=== PATIENT | female | born 1985 | race Caucasian/White ===

== ENCOUNTER 2018-02-01 15:11 | Emergency (ER) | payer OTHER, MEDICAID, SELFPAY ==
[2018-02-01] VITALS (8 sets, daily range): BP systolic 110–168; BP diastolic 67–89; PULSE 66–100; RESP 12–20; TEMP 36.7; O2SAT 99–100
--- NOTE | 2018-02-01 15:21 | ED_ITS ---
HPI - Overdose General Chief Complaint: Toxicology Problem Stated Complaint: OD tylenol and nyquil Time Seen by Provider: 02/01/18 15:20 Source: patient Mode of arrival: EMS Limitations: no limitations History of Present Illness HPI Narrative: 32-year-old female brought in by EMS from [facility] after approximately 2 hr prior to arrival in this emergency department the patient took approximately 15 Tylenol p.m. was with NyQuil. She is unsure as to how much NyQuil she drank. She states that she took these medications because she was ?done with my day ?she states that she has never tried to hurt herself in the past. Would not answer any questions about the situation that led to the situation. Denies any prior mental health diagnoses. She is not . Has a 14-year-old son who is being watched by the patient's mother. Related Data Home Medications Medication Instructions Recorded Confirmed No Known Home Medications 02/01/18 02/01/18 Allergies Allergy/AdvReac Type Severity Reaction Status Date / Time No Known Allergies Allergy Uncoded 12/22/17 13:09 Review of Systems Constitutional Denies chills, Denies fever(s), Denies headache(s), Denies lethargy and Denies weakness Eyes Denies loss of vision ENT Ears, Nose, Mouth, and Throat: Denies headache(s) Cardiovascular Denies chest pain and Denies dyspnea Respiratory Denies cough and Denies dyspnea Gastrointestinal Gastrointestinal: Denies abdominal pain, Denies change in stool character, Denies constipation, Denies diarrhea, Denies nausea and Denies vomiting Musculoskeletal Denies muscle cramps Integumentary/Breasts Denies pruritus, Denies erythema, Denies rash and Denies wounds Neurologic Reports behavioral changes, Denies confusion, Denies headache(s), Denies loss of vision and Denies weakness Psychiatric Denies anxiety, Reports behavioral changes, Denies confusion, Reports depression , Denies hallucinations, Denies homicidal ideation and Reports suicidal ideation Hematologic/Lymphatic Denies easy bruising Exam Initial Vital Signs Initial Vital Signs: Vital Signs Temperature 98.1 F 02/01/18 15:37 Pulse Rate 100 H 02/01/18 15:37 Respiratory Rate 18 02/01/18 15:37 Blood Pressure 113/67 02/01/18 15:37 Pulse Oximetry 100 02/01/18 15:37 Const General: cooperative (Only somewhat cooperative with answering questions), comfortable, well developed, well groomed, No combative, No ill appearing and No intoxicated appearing Nutritional Appearance: well nourished Orientation: alert, awake, oriented x3 and not confused Eyes Pupils: PERRL Resp Effort & Inspection: normal respiratory effort, able to speak in complete sentences, no respiratory distress and no use of accessory muscles Auscultation: clear to auscultation bilaterally, no rales, no rhonchi and no wheezes Cardio Rate: regular rate Rhythm: regular rhythm Heart Sounds: no click, no gallops, no murmurs and no rubs Pulses: normal peripheral pulses Skin General: no rashes or lesions noted, No jaundice and No petechiae Neuro General: alert, awake, oriented x3, gait normal and no focal motor deficits Speech: speech normal Sensory Exam: no sensory deficits noted Psych Appearance: grossly normal and well kempt Mental Status: other (Depressed mood) Speech and Movement: agitated, speech not pressured, not restless, movement not slowed and speech not slurred Mood: other (Depressed mood) Affect: sad, indifferent and blunted Attitude: cooperative (Somewhat cooperative however was very short with answers and did not answer some questions) Course Orders Ordered: ED Orders 02/01/18 16:03 Acetaminophen Stat Complete Blood Count AUTO DIFF Stat Comprehensive Metabolic Panel Stat Ethanol (ETOH) Stat Rapid Drug Screen, Urine Stat Salicylate Stat 02/01/18 16:45 EKG-12 Lead Stat 02/01/18 17:35 Acetaminophen Stat Vital Signs - 8 hr 02/01/18 15:37 02/01/18 16:14 02/01/18 17:00 Temperature 98.1 F Pulse Rate 100 H 74 74 Respiratory Rate 18 18 15 Blood Pressure 113/67 Blood Pressure [Right Arm] 128/83 H 127/89 H Pulse Oximetry 100 100 100 02/01/18 17:30 02/01/18 18:17 Temperature Pulse Rate 81 81 Respiratory Rate 12 Blood Pressure Blood Pressure [Right Arm] 119/76 117/68 Pulse Oximetry 100 100 MDM - Overdose Lab Data Attestation: I reviewed the patient's lab results. Result diagrams: 02/01/18 16:03 02/01/18 16:03 Lab Results 02/01/18 02/01/18 02/01/18 Range/Units 16:03 16:03 16:03 WBC 8.5 (4.5-11.0) X10^3/uL RBC 4.67 (4.0-5.2) X10^6/uL Hgb 14.2 (12.0-16.0) g/dL Hct 41.5 (36-46) % MCV 88.8 (80-100) fL MCH 30.4 (26-34) PG MCHC 34.2 (30-36) % RDW 13.4 (11.6-14.8) % Plt Count 219 (150-400) X10^3/uL Neut % (Auto) 52.9 (50-75) % Lymph % (Auto) 37.1 (25-40) % Mora % (Auto) 8.7 (3-14) % Eos % (Auto) 1.0 L (2-4) % Baso % (Auto) 0.3 (0-2) % Neut # (Auto) 4500 (1227-1930) /uL Sodium 143 (137-145) mmol/L Potassium 3.8 (3.4-5.1) mmol/L Chloride 107.0 (98-107) mmol/L Carbon Dioxide 25.0 (22-32) mmol/L BUN 9.0 (7-17) mg/dL Creatinine 0.60 (0.52-1.04) mg/dL Estimated GFR > 60.0 (>60) mL/min BUN/Creatinine Ratio 15.0 (6-22) Glucose 78 (70-100) mg/dL Calcium 8.5 (8.4-10.2) mg/dL Total Bilirubin 0.5 (0.2-1.3) mg/dL AST 15 (14-36) IU/L ALT 26 (9-52) IU/L Alkaline Phosphatase 65 (38-126) U/L Total Protein 7.0 (6.3-8.2) g/dL Albumin 4.2 (3.5-5.0) g/dL Globulin 2.8 (1.7-4.1) g/dL Albumin/Globulin Ratio 1.5 (1.0-2.8) Salicylates < 1.0 (<20) mg/dL Urine Opiates Screen Negative (Negative) Ur Oxycodone Screen Negative (Negative) Urine Methadone Screen Negative (Negative) Acetaminophen 56 H* (10-30) ug/dL Ur Barbiturates Screen Negative (Negative) U Tricyclic Antidepress Negative (Negative) Ur Phencyclidine Scrn Negative (Negative) Ur Amphetamines Screen Positive H (Negative) U Methamphetamines Scrn Positive H (Negative) Ur MDMA Scrn (Ecstasy) Negative (Negative) U Benzodiazepines Scrn Negative (Negative) Urine Cocaine Screen Negative (Negative) U Marijuana (THC) Screen Negative (Negative) Ethyl Alcohol < 10 mg/dL 02/01/18 Range/Units 17:35 WBC (4.5-11.0) X10^3/uL RBC (4.0-5.2) X10^6/uL Hgb (12.0-16.0) g/dL Hct (36-46) % MCV (80-100) fL MCH (26-34) PG MCHC (30-36) % RDW (11.6-14.8) % Plt Count (150-400) X10^3/uL Neut % (Auto) (50-75) % Lymph % (Auto) (25-40) % Mora % (Auto) (3-14) % Eos % (Auto) (2-4) % Baso % (Auto) (0-2) % Neut # (Auto) (9119-4039) /uL Sodium (137-145) mmol/L Potassium (3.4-5.1) mmol/L Chloride (98-107) mmol/L Carbon Dioxide (22-32) mmol/L BUN (7-17) mg/dL Creatinine (0.52-1.04) mg/dL Estimated GFR (>60) mL/min BUN/Creatinine Ratio (6-22) Glucose (70-100) mg/dL Calcium (8.4-10.2) mg/dL Total Bilirubin (0.2-1.3) mg/dL AST (14-36) IU/L ALT (9-52) IU/L Alkaline Phosphatase (38-126) U/L Total Protein (6.3-8.2) g/dL Albumin (3.5-5.0) g/dL Globulin (1.7-4.1) g/dL Albumin/Globulin Ratio (1.0-2.8) Salicylates (<20) mg/dL Urine Opiates Screen (Negative) Ur Oxycodone Screen (Negative) Urine Methadone Screen (Negative) Acetaminophen 60 H* (10-30) ug/dL Ur Barbiturates Screen (Negative) U Tricyclic Antidepress (Negative) Ur Phencyclidine Scrn (Negative) Ur Amphetamines Screen (Negative) U Methamphetamines Scrn (Negative) Ur MDMA Scrn (Ecstasy) (Negative) U Benzodiazepines Scrn (Negative) Urine Cocaine Screen (Negative) U Marijuana (THC) Screen (Negative) Ethyl Alcohol mg/dL ECG Data Attestation: I personally reviewed and interpreted this ECG as follows: Prior ECG tracings: not available for review Interpretation: Sinus rhythm Ventricular rate is 72 Normal axis Normal QRS - 85 milliseconds Normal QTC No ST T wave changes MDM Narrative Medical decision making narrative: Patient has been medically stable while here in the emergency department. 4 hr Tylenol level was 60. UDS positive for meth. Patient has been sleeping in the ER with normal vital signs. Discussed the case with poison Control who states that she needs to be evaluated for 6 hr after ingestion secondary to the Benadryl. Family is at bedside. More information provided by other saying that the patient has been suicidal for some time and has attempted suicide in the past however no specifics were given. Case turned over to Dr. Carpenter at turned over for further evaluation and disposition and contacting mental health. Discharge Plan Departure Prescriptions: No Action No Known Home Medications RF: 0
--- NOTE | 2018-02-01 15:55 | PC.NURSE ---
with minimal assist. ambulate with steady gait.
[2018-02-01 16:15] LABS: Add Manual Diff / Slide Review NO; Basophils Percent Auto 0.3 % (0-2); Hematocrit 41.5 % (36-46); Hemoglobin 14.2 g/dL (12.0-16.0); Lymphocytes Percent Auto 37.1 % (25-40); Mean Corpuscular HGB Conc 34.2 % (30-36); Mean Corpuscular Hemoglobin 30.4 PG (26-34); Mean Corpuscular Volume 88.8 fL (80-100); Monocytes Percent Auto 8.7 % (3-14); Neutrophils Absolute Auto 4500 /uL (3000-5900); Neutrophils Percent Auto 52.9 % (50-75); Platelet Count 219 X10^3/uL (150-400); Red Blood Cell Count 4.67 X10^6/uL (4.0-5.2); Red Cell Distribution Width 13.4 % (11.6-14.8); White Blood Cell Count 8.5 X10^3/uL (4.5-11.0)
--- NOTE | 2018-02-01 16:15 | PC.NURSE ---
planning or wanting to hang her self 3 days ago.
--- NOTE | 2018-02-01 16:19 | PC.NURSE ---
pt wanting help, pt in room 1, cooperative with care at this time. pt contracted for safety, states, not running away , requesting help. pt states, unknown time , tyl pm ingestion along with nyquil, reports wanting to hang self 3 days ago, denies alcohol. pt having headache and nausea at this time, denies hallucinations (visual and auditory) denies pain at this time, reports with depression and spoke with her counselor leah ospina last wednesday.
[2018-02-01 16:31] LABS: Urine Amphetamines Positive (Negative); Urine Cocaine Negative (Negative); Urine MDMA Negative (Negative); Urine Methamphetamines Positive (Negative); Urine Morphine/Opi cutoff 2000 Negative (Negative); Urine Phencyclidine Negative (Negative); Urine Tetrahydrocannabinol Negative (Negative)
[2018-02-01 16:32] LABS: Alanine Aminotransferase 26 IU/L (9-52); Albumin 4.2 g/dL (3.5-5.0); Albumin Globulin Ratio 1.5 (1.0-2.8); Alkaline Phosphatase 65 U/L (38-126); Aspartate Aminotransferase 15 IU/L (14-36); Bilirubin Total 0.5 mg/dL (0.2-1.3); Calcium 8.5 mg/dL (8.4-10.2); Estimated Glomerular Filt Rate > 60.0 mL/min (>60); Ethanol (ETOH) < 10 mg/dL; Globulin 2.8 g/dL (1.7-4.1); Glucose 78 mg/dL (70-100); HEMOLYSIS < 15 (0-50); Potassium 3.8 mmol/L (3.4-5.1); Sodium 143 mmol/L (137-145); Urine Barbiturates Negative (Negative); Urine Benzodiazepines Negative (Negative); Urine Methadone Negative (Negative); Urine Oxycodone Negative (Negative); Urine Tricyclic Antidepressant Negative (Negative)
[2018-02-01 16:39] LABS: Salicylate < 1.0 mg/dL (<20)
--- NOTE | 2018-02-01 17:20 | PC.NURSE ---
POISON CONTROL CALLED SPOKE WITH DR. BRAVO
--- NOTE | 2018-02-01 17:46 | PC.NURSE ---
PATIENT GAVE ME PERMISSION TO CALL MELODIE CHANG BACK AND TELL HIM HE IS ALLOWED TO COME VISIT PT. NO MEDICAL INFORMATION WAS CONVEYED ON THE PHONE PER PT REQUEST.
--- NOTE | 2018-02-01 18:05 | PC.NURSE ---
SPOKE WITH [facility]. EXPLAINED NO MEDICAL INFORMATION CAN BE GIVEN OVER THE PHONE AT THIS TIME PER PATIENT REQUEST. FLOSSER STATES THE POLICE HAS BEEN CALLED ON HER THREE TIMES THIS WEEK BY HER MOTHER. PT LIVES AT HOME WITH MOTHER AND CHILDREN. MOTHER STATES SHE IS NOT SAFE TO BE AROUND CHILDREN. PT TOOK A HAMMER TO CAR AND BUSTED OUT THE WINDOWS, DCR SENT TO HOUSE . PT NOT ABLE TO BE SEEN BY [facility] TILL February. SOCIAL WORKERS STATES HE USED TO WORK FOR [employer] AND PT IS NOT SAFE TO GO HOME. PROVIDER NOTIFIED NO NEW ORDERS AT THIS TIME.
[2018-02-01 18:13] LABS: Acetaminophen 60 ug/dL (10-30)
--- NOTE | 2018-02-01 19:30 | PC.NURSE ---
pt father filling out affdavid per provider request.
--- NOTE | 2018-02-01 20:09 | PC.NURSE ---
Attempted to move pt to RM13 due to high risk for eloping. Pt got agitated, not cooperative, cursing and pushing staff members. Pt made herself back by pushing staff members, stating I'm staying in this room and refuse to stay in RM 13 after the reasons informed. Pt upset but states will stay in bed 1 and informed currently waiting for MH carpenter apprentice to arrive to [facility] and pt is not allowed to leave the hospital. Pt also requesting to go out to smoke, alternative Nicotine patch offered by but pt refuses. Pt remaining in RM1 with door is closed but being visualized by staff member.
--- NOTE | 2018-02-01 20:18 | PC.NURSE ---
pt being monitored 1:1 by hospital security at bedside.
--- NOTE | 2018-02-01 21:09 | PC.NURSE ---
clerical secretary Carlos arrived to ER.
[2018-02-02 01:36] VITALS: BP 115/67; PULSE 88; RESP 14; O2SAT 99
--- NOTE | 2018-02-02 01:43 | PC.NURSE ---
@0125, phone report called at [facility] and spoke with BERNA Norman for continuation of care. ETA informed at 0145. No further questions at this time.
[2018-02-02 08:03] LABS: Acetaminophen 56 ug/dL (10-30)
== END 2018-02-02 01:55 ==
PROVIDERS: Emergency Medicine; Emergency Provider Emergency Medicine
DX: T39.1X2A Poisoning by 4-Aminophenol derivatives, intentional self-harm, initial encounter (principal); F15.10 Other stimulant abuse, uncomplicated; F32.9 Major depressive disorder, single episode, unspecified
CPT/HCPCS: 36415; 80053; 80305; 80320; 80329; 81003; 81025; 85025; 93005; 99285; G0480

== ENCOUNTER → 2025-01-16 13:51 | Outpatient (CLI) | payer OTHER, SELFPAY ==
--- NOTE | 2025-01-16 13:56 | DI.US.S_ITS ---
PROCEDURE: US PELVIC COMPLETE INDICATIONS: POSS LEFT ADRENAL MASS TECHNIQUE: Real-time scanning was performed of the pelvic organs, with image documentation. Additional endovaginal scanning was necessary due to incomplete visualization of the adnexal and endometrial structures by transabdominal scanning. COMPARISON: None. FINDINGS: Uterus: Uterus is anteverted and normal in size at 8.9 x 4.1 x 4.6 cm. The myometrium is heterogeneous. The endometrium measures 5.5 mm combined thickness. Ovaries: The right ovary measures 2.1 x 1.5 x 2.5 cm, with a calculated ovarian volume of 4.3 cc. Right ovarian simple cyst measuring 1.6 cm. The left ovary measures 1.9 x 0.8 x 2.1 cm, with a calculated ovarian volume of 1.7 cc. The ovaries have a normal sonographic appearance. Less than 12 follicles can be seen in each ovary. No adnexal masses are seen. Other: No pathologic free abdominal or pelvic fluid. IMPRESSION: No left adnexal masses are identified. Right ovarian simple cyst measuring 1.6 cm. We strive to produce accurate, complete, and clear reports of imaging services. To assist us in improving patient care, this report was composed using standard report templates and voice recognition software. Therefore, it may contain abnormal punctuation, insertions and/or omissions. Occasional wrong-word or sound-alike substitutions may occur. Though we review the report and make efforts to correct it, we do recommend that the report be read carefully in proper context to recognize any text inaccuracies. Dictated by: Morris Charles M.D. on 01/16/2025 at 15:39 Approved by: Morris Charles M.D. on 01/16/2025 at 15:41
== END ==
LOC: US 13:55
PROVIDERS: PCP Physician Assistant; Referring Provider Nurse Practitioner; Visit Provider Nurse Practitioner
DX: N83.8 Other noninflammatory disorders of ovary, fallopian tube and broad ligament (principal); N83.291 Other ovarian cyst, right side
CPT/HCPCS: 76830; 76856